=== PATIENT | female | born 1940 | race Caucasian/White ===

== ENCOUNTER → 2016-11-16 | Outpatient (CLI) | payer MEDICARE | END | disposition home or self-care (01) | LOC: GMAM 09:03 | PROVIDERS: ATTEND Family Medicine | DX: E83.52 Hypercalcemia (principal) ==

== ENCOUNTER → 2017-04-06 | Outpatient (CLI) | payer MEDICARE ==
--- NOTE | 2017-04-09 11:14 | MAM ---
EXAM DESCRIPTION: 3D Screening BILATERAL CLINICAL HISTORY: 76 yearsFemaleSCREENING. Total hysterectomy. No HRT. COMPARISON: Digital 2-D screening bilateral study 03/25/2016. Report from prior examination also reviewed. TECHNIQUE: Bilateral CC and MLO projection full-field images, 3-D tomosynthesis digital mammographic technique. Also bilateral synthesized CC/ MLO full-field images. CAD not utilized. FINDINGS: The breast parenchymal density pattern is: Scattered areas of fibroglandular density. No skin thickening or nipple retraction No focal, stellate mass or density, focal asymmetry , and no suspicious microcalcifications bilaterally. Stable mammograms since March 2016, taking into account differences in mammographic technique. IMPRESSION: BI-RADS CATEGORY: 1 - NEGATIVE FOLLOW UP: Routine digital bilateral screening, one year interval from March 2017. Written communication explaining the findings and follow-up, will be mailed to the patient and referring health care provider. According to the [employer], yearly mammograms are recommended starting at age 40 and continuing as long as a woman is in good health. Any breast change noted on a breast self-exam should be reported promptly to the patient's healthcare provider. Breast MRI is recommended for women with an approximately 20-25% or greater lifetime risk of breast cancer, including women with a strong family history of breast or ovarian cancer and women who have been treated for Hodgkin's disease. A negative mammographic report should not delay tissue diagnosis in patients with significant clinical history or physical findings. Extremely dense breast tissue limits the sensitivity of digital mammography. Electronically signed by: Kushal Kenney MD 04/09/2017 11:12 AM CDT Workstation: [id number]
== END ==
LOC: MAMMO 15:34
DX: Z12.31 Encounter for screening mammogram for malignant neoplasm of breast (principal)
CPT/HCPCS: G0202; G0279

== ENCOUNTER → 2017-07-14 | Outpatient (CLI) | payer MEDICARE | LOC: GMAM 14:11 | PROVIDERS: ATTEND Family Medicine | DX: N39.0 Urinary tract infection, site not specified (principal) ==

== ENCOUNTER → 2018-10-25 | Outpatient (CLI) | payer MEDICARE | LOC: GMAM 08:28 | PROVIDERS: ATTEND Family Medicine | DX: E83.52 Hypercalcemia (principal) ==

== ENCOUNTER → 2020-01-11 | Outpatient (CLI) | payer MEDICARE ==
--- NOTE | 2020-01-15 10:09 | MAM ---
EXAM DESCRIPTION: 3D Screening BILATERAL : Digital Mammography. CLINICAL HISTORY: 79 years Female ANNUAL SCREENING . No complaints. Remote family history of breast cancer. Menarche age 11. Childbirth age 21. Menopause age 52. HRT 5 or more years ago.. Lifetime risk of developing breast cancer (Tyrer-Cuzick model)(%): 2.7. COMPARISON: Bilateral screening digital breast tomosynthesis April 2018 and March 2017. TECHNIQUE: Bilateral CC and MLO projection full-field images, digital tomosynthesis mammographic technique. Bilateral digital 2-D full-field MLO images. CAD available for 2-D images. FINDINGS: The breast parenchymal density pattern is: Scattered areas of fibroglandular density. No skin thickening or nipple retraction. Right axillary lymph node. Solitary microcalcifications. Skin mole markers. No new focal, stellate mass or density, focal asymmetry , and no suspicious microcalcifications . Stable mammograms compared to prior study. IMPRESSION: Benign exam. BIRAD CATEGORY: 2 BENIGN FINDINGS. RECOMMENDATIONS: FOLLOW UP: Routine digital bilateral mammographic screening, one year interval from January 2020. Written communication explaining the IMPRESSION and follow-up, will be mailed to the patient and referring health care provider. According to the [employer], yearly mammograms are recommended starting at age 40 and continuing as long as a woman is in good health. Any breast change noted on a breast self-exam should be reported promptly to the patient's healthcare provider. Breast MRI is recommended for women with an approximately 20-25% or greater lifetime risk of breast cancer, including women with a strong family history of breast or ovarian cancer and women who have been treated for Hodgkin's disease. A negative mammographic report should not delay tissue diagnosis in patients with significant clinical history or physical findings. Extremely dense breast tissue limits the sensitivity of digital mammography. Electronically signed by: Kushal Kenney MD 01/15/2020 10:07 AM CDT
== END ==
LOC: MAMMO 07:51
PROVIDERS: ATTEND Family Medicine
DX: Z12.31 Encounter for screening mammogram for malignant neoplasm of breast (principal)

== ENCOUNTER 2020-04-01 05:19 | Day surgery (SDC) | payer MEDICARE ==
[2020-04-01] MEDS ORDERED: TROP1%/CYCLOPEN 1%/PHENYL 2.5% DROPS ONE (05:33)
[2020-04-01] MEDS ORDERED: PROPARACAINE 0.5% OPHTH SOL 15 ML BTTL ONE (05:33)
[2020-04-01] MEDS ORDERED: MOXIFLOXACIN HCL (OPHTH) 1 DROP DROPS ONE (05:33)
[2020-04-01] MEDS ORDERED: MIDAZOLAM INJ 2 MG/2 ML VIAL ONE (06:56)
[2020-04-01] MEDS ORDERED: SODIUM CHLORIDE 0.9% (FLUSH) 10 ML SYG ONE (06:56)
[2020-04-01] MEDS: LIDOCAINE 1% 2 ML VIAL INJ ONE ×2 (07:06→07:19)
[2020-04-01] MEDS: PROPARACAINE 0.5% OPHTH SOL 15 ML BTTL LEFT_EYE ONE ×2 (07:06→07:19)
[2020-04-01] MEDS: MOXIFLOXACIN HCL (OPHTH) 1 DROP DROPS LEFT_EYE ONE ×2 (07:06→07:19)
[2020-04-01] MEDS: DEXAMETHASONE 0.1% OPHTH SOL 1 DROP LEFT_EYE ONE ×2 (07:07→07:19)
[2020-04-01] MEDS: TOBRAMYCIN SULF 0.3 % OPHT SOL 1 DROP LEFT_EYE ONE ×2 (07:07→07:19)
[2020-04-01] MEDS: BRIMONIDINE 0.2% OPHTH DROPS LEFT_EYE ONE ×2 (07:08→07:19)
== END 2020-04-01 08:20 | disposition home or self-care (01) ==
LOC: AMB 05:19
PROVIDERS: ATTEND Ophthalmology
DX: H25.12 Age-related nuclear cataract, left eye (principal); I10 Essential (primary) hypertension; E78.5 Hyperlipidemia, unspecified; G47.30 Sleep apnea, unspecified; Z79.899 Other long term (current) drug therapy
CPT/HCPCS: 00142; 66984; A4216; J2250

== ENCOUNTER → 2020-07-16 | Outpatient (CLI) | payer MEDICARE | LOC: GMAM 11:46 | PROVIDERS: ATTEND Family Medicine | DX: E83.52 Hypercalcemia (principal) ==